=== PATIENT | male | born 2005 | race Hispanic/Latino ===

== ENCOUNTER 2023-07-04 13:21 | Emergency (ER) | payer OTHER ==
[2023-07-04] MEDS ORDERED: IBUPROFEN 400 MG TAB ONE (15:40)
[2023-07-04] MEDS ORDERED: predniSONE 20 MG TAB ONE (15:40)
[2023-07-04] MEDS ORDERED: DIAZEPAM 5 MG TABLET ONE (15:40)
--- NOTE | 2023-07-04 16:48 | ER ---
Nurse's Notes [facility] Name: Sylvester Mcneill Age: 18 yrs Sex: Male : 2005 Arrival Date: 07/04/2023 Time: 13:21 Bed 9 Private MD: Diagnosis: Generalized anxiety disorder;Pleurisy Presentation: 07/04 14:20 Chief complaint: Patient states: Had a panic attack earlier today. Has right side chest nj1 pain, going on for a week, concerned it could be pneumonia, also had cough, denies fever. Coronavirus screen: Vaccine status: Patient reports being unvaccinated. Ebola Screen: Patient denies travel to an Ebola-affected area in the 21 days before illness onset. Initial Sepsis Screen: Does the patient meet any 2 criteria? No. Patient's initial sepsis screen is negative. Does the patient have a suspected source of infection? No. Patient's initial sepsis screen is negative. Risk Assessment: Do you want to hurt yourself or someone else? Patient reports no desire to harm self or others. Onset of symptoms was June 2023. 14:20 Method Of Arrival: Ambulatory [facility] 14:20 Acuity: ZULMA 3 nj1 Historical: - Allergies: 14:23 No Known Allergies; nj1 - PMHx: 14:23 Depressive disorder; Anxiety; nj1 - Immunization history:: Client reports having NOT received the Covid vaccine. - Social history:: Smoking status: Patient reports the use of cigarette tobacco products, denies chronic smoking, but will smoke occasionally. Screenin:[facility] ED Fall Risk Assessment (Adult) History of falling in the last 3 months, cm10 including since admission No falls in past 3 months (0 pts) Confusion or Disorientation No (0 pts) Intoxicated or Sedated No (0 pts) Impaired Gait No (0 pts) Mobility Assist Device Used No (0 pt) Altered Elimination No (0 pt) Score/Fall Risk Level 0 - 2 = Low Risk Oriented to surroundings, Maintained a safe environment, Hourly rounding (assess needs \T\ fall precautionary measures) done. Abuse screen: Denies threats or abuse. Denies injuries from another. Nutritional screening: No deficits noted. Tuberculosis screening: No symptoms or risk factors identified. Assessment: 15:24 General: Appears in no apparent distress. comfortable, Behavior is calm, cooperative. cm10 Pain: Complains of pain in chest Pain does not radiate. Quality of pain is described as burning, Pain began 1 week ago. Neuro: No deficits noted. Level of Consciousness is awake, alert, Oriented to person, place, time, situation. Cardiovascular: No deficits noted. Heart tones present. Respiratory: No deficits noted. Airway is patent Respiratory effort is even, unlabored, Respiratory pattern is regular, symmetrical. 17:12 Reassessment: DC HOME AMBULATORY WITH FAMILY. bp Vital Signs: 14:20 BP 136 / 86; Pulse 57; Resp 17; Temp 98.2(O); Pulse Ox 100% ; Weight 61.23 kg; Height 5 nj1 ft. 7 in. ; Pain 3/10; 14:20 Body Mass Index 21.14 (61.23 kg, 170.18 cm) nj1 14:20 Pain Scale: Adult md1 ED Course: 13:25 Patient arrived in ED. mg5 13:33 Delfin Muller MD is Attending Physician. kdr 14:23 Triage completed. nj1 14:24 Arm band placed on right wrist. nj1 15:25 Patient has correct armband on for positive identification. Bed in low position. Call cm10 light in reach. Provided Education on: N/A. Cardiac monitoring not applicable on this patient. 15:25 No provider procedures requiring assistance completed. Patient did not have IV access cm10 during this emergency room visit. Patient maintains SpO2 saturation greater than 95% on room air. 15:28 Lauren Godoy, RN is Primary Nurse. cm10 Administered Medications: 15:33 Drug: Diazepam PO 5 mg Route: PO; cm10 16:36 Follow up: Response: No adverse reaction cm10 15:33 Drug: Ibuprofen PO 800 mg Route: PO; cm10 16:36 Follow up: Response: No adverse reaction cm10 15:33 Drug: predniSONE PO 20 mg Route: PO; cm10 16:36 Follow up: Response: No adverse reaction cm10 Medication: 15:25 VIS not applicable for this client. cm10 Outcome: 16:47 Discharge ordered by . kdr 17:12 Discharged to home ambulatory. bp 17:12 Condition: stable 17:12 Discharge instructions given to patient, Instructed on discharge instructions, follow up and referral plans. medication usage, Demonstrated understanding of instructions, follow-up care, medications, Prescriptions given X 1. 17:13 Patient left the ED. bp Signatures: Delfin Muller MD MD kdr Jonnie Gaines RN RN bp Vangie Gu RN RN nj1 Lauren Godoy RN RN cm10 Sultana Whitfield 5
--- NOTE | 2023-07-04 16:48 | EDPHYS ---
Physician Documentation [facility] Name: Sylvester Mcneill Age: 18 yrs Sex: Male : 2005 Arrival Date: 07/04/2023 Time: 13:21 Bed 9 Private MD: ED Physician Delfin Muller HPI: 07/04 19:47 This 18 yrs old Male presents to ER via Ambulatory with complaints of Anxiety - Panic kdr Attack, Chest Pain, Body Pain. 19:47 Patient states that he had a panic attack earlier today at work. He also was kdr complaining of chest pain mostly right-sided for about the past week. He is concerned that it could be pneumonia. Patient denies any cough or fever. The pain is worse when he takes of breath or when he exhales. He is not breathing he has no pain. I discussed with the patient the probability that this was likely pleurisy. Patient otherwise seems somewhat anxious but but was under control while in the ED. He was nontoxic-appearing.. Onset: The symptoms/episode began/occurred gradually, 1 week(s) ago. Severity of symptoms: At their worst the symptoms were mild moderate just prior to arrival, in the emergency department the symptoms have improved markedly. The patient has experienced similar episodes in the past, a few times. The patient has not recently seen a physician. Historical: - Allergies: 14:23 No Known Allergies; nj1 - PMHx: 14:23 Depressive disorder; Anxiety; nj1 - Immunization history:: Client reports having NOT received the Covid vaccine. - Social history:: Smoking status: Patient reports the use of cigarette tobacco products, denies chronic smoking, but will smoke occasionally. ROS: 19:47 Constitutional: Negative for fever, chills, and weight loss, Eyes: Negative for injury, kdr pain, redness, and discharge, ENT: Negative for injury, pain, and discharge, Neck: Negative for injury, pain, and swelling, Respiratory: Negative for shortness of breath, cough, wheezing, and pleuritic chest pain, Abdomen/GI: Negative for abdominal pain, nausea, vomiting, diarrhea, and constipation, Back: Negative for injury and pain, : Negative for injury, bleeding, discharge, and swelling, MS/Extremity: Negative for injury and deformity, Skin: Negative for injury, rash, and discoloration, Neuro: Negative for headache, weakness, numbness, tingling, and seizure activity. Allergy/Immunology: Negative for hives, rash, and allergies, Endocrine: Negative for neck swelling, polydipsia, polyuria, polyphagia, and marked weight changes, Hematologic/Lymphatic: Negative for swollen nodes, abnormal bleeding, and unusual bruising. 19:47 Cardiovascular: Positive for chest pain, with cough, with movement, of the right supraclavicular area, anterior aspect of right upper chest and right lateral anterior chest. 19:47 Psych: Positive for anxiety. Exam: 19:49 Constitutional: This is a well developed, well nourished patient who is awake, alert, kdr and in no acute distress. Head/Face: Normocephalic, atraumatic. Eyes: Pupils equal round and reactive to light, extra-ocular motions intact. Lids and lashes normal. Conjunctiva and sclera are non-icteric and not injected. Cornea within normal limits. Periorbital areas with no swelling, redness, or edema. Neck: Trachea midline, no thyromegaly or masses palpated, and no cervical lymphadenopathy. Supple, full range of motion without nuchal rigidity, or vertebral point tenderness. No Meningismus. Chest/axilla: Normal chest wall appearance and motion. Nontender with no deformity. No lesions are appreciated. Cardiovascular: Regular rate and rhythm with a normal S1 and S2. No gallops, murmurs, or rubs. Normal PMI, no JVD. No pulse deficits. Respiratory: Lungs have equal breath sounds bilaterally, clear to auscultation and percussion. No rales, rhonchi or wheezes noted. No increased work of breathing, no retractions or nasal flaring. Abdomen/GI: Soft, non-tender, with normal bowel sounds. No distension or tympany. No guarding or rebound. No evidence of tenderness throughout. Back: No spinal tenderness. No costovertebral tenderness. Full range of motion. Skin: Warm, dry with normal turgor. Normal color with no rashes, no lesions, and no evidence of cellulitis. MS/ Extremity: Pulses equal, no cyanosis. Neurovascular intact. Full, normal range of motion. Neuro: Awake and alert, GCS 15, oriented to person, place, time, and situation. Cranial nerves II-XII grossly intact. Motor strength 5/5 in all extremities. Sensory grossly intact. Cerebellar exam normal. Normal gait. 19:49 Psych: Behavior/mood is pleasant, cooperative, anxious, Affect is animated, Oriented to person, place, time, Patient has no thoughts/intents to harm self or others. Judgement / Insight is normal. Delusions/hallucinations are not present. Vital Signs: 14:20 BP 136 / 86; Pulse 57; Resp 17; Temp 98.2(O); Pulse Ox 100% ; Weight 61.23 kg; Height 5 nj1 ft. 7 in. ; Pain 3/10; 14:20 Body Mass Index 21.14 (61.23 kg, 170.18 cm) [facility] 14:20 Pain Scale: Adult nj1 MDM: 16:47 Patient medically screened. kdr 19:51 Data reviewed: vital signs, nurses notes, lab test result(s), radiologic studies. kdr Administered Medications: 15:33 Drug: Diazepam PO 5 mg Route: PO; cm10 16:36 Follow up: Response: No adverse reaction cm10 15:33 Drug: Ibuprofen PO 800 mg Route: PO; cm10 16:36 Follow up: Response: No adverse reaction cm10 15:33 Drug: predniSONE PO 20 mg Route: PO; cm10 16:36 Follow up: Response: No adverse reaction cm10 Disposition Summary: 07/04/23 16:47 Discharge Ordered Location: Home kdr Problem: an acute exacerbation kdr Symptoms: have improved kdr Condition: Stable kdr Diagnosis - Generalized anxiety disorder kdr - Pleurisy kdr Followup: kdr - With: Private Physician - When: 2 - 3 days - Reason: If symptoms return, Further diagnostic work-up, Recheck today's complaints, Continuance of care, Re-evaluation by your physician Discharge Instructions: - Discharge Summary Sheet kdr - Panic Attack, [id number] kdr - Pleurisy, [id number] kdr - Generalized Anxiety Disorder, Adult kdr Forms: - Medication Reconciliation Form kdr - Thank You Letter kdr - Patient Portal Instructions kdr Prescriptions: - Ibuprofen 600 mg Oral Tablet - take 1 tablet by ORAL route every 6 hours As needed take with food; 30 tablet; kdr Refills: 0, Product Selection Permitted Signatures: Delfin Muller MD MD kdr Vangie Gu RN RN nj1 aLuren Godoy RN RN cm10
[2023-07-04 17:28] VITALS: BP 136/86; TEMP 98.2; O2SAT 100
== END 2023-07-04 17:13 | disposition home or self-care (01) ==
LOC: ER 13:21
DX: F41.1 Generalized anxiety disorder (principal); R09.1 Pleurisy; F41.0 Panic disorder [episodic paroxysmal anxiety]; R07.9 Chest pain, unspecified; R05.9 Cough, unspecified; Z72.0 Tobacco use
CPT/HCPCS: J7512

== ENCOUNTER 2023-10-06 10:19 | Emergency (ER) | payer OTHER ==
--- OUTSIDE RECORDS SUMMARY | 2023-10-06 10:22 | XMS REPORT | Continuity of Care Document ---
:2005 Author Organization [facility] t Address [address] [place] [address] [place] [id number] Care Team Providers Name Role Phone DR ELIJAH OJEDA Attending Clinician Unavailable DR ELIJAH OJEDA Admitting Clinician Unavailable Payers Payer Name Policy Type Policy Number Effective Date Expiration Date S marshall [id number] 1959 00:00:00 Problems This patient has no known problems. Allergies, Adverse Reactions, Alerts This patient has no known allergies or adverse reactions. Medications This patient has no known medications. Procedures This patient has no known procedures. Encounters Start End Encounter Admission Attending Care Care Encounter Source Date/Time Date/Time Type Type Clinicians Facility Department ID 2022-03-30 [facility] [id number] Common 13:52:02 0504 [facility] 2022-03-29 [facility] Common 11:10:01 0503 [facility] 2022-03-28 Outpatient [facility] [id number] Common 08:33:01 0502 [facility] 2021-12-22 Outpatient [facility] [id number] Common 13:22:04 0702 [facility] 2021-12-22 Outpatient [facility] [id number] Common 13:21:07 0630 [facility] 2021-12-22 Outpatient [facility] [id number] Common 13:12:28 0609 [facility] 2021-12-22 Outpatient [facility] [id number] Common 13:08:01 05 [facility] 2021-12-22 [facility] Common 12:50:57 [id number] [facility] 2021-12-22 Outpatient [facility] Common 12:49:03 [id number] [facility] 2021-12-22 [facility] Common 12:47:24 [id number] [facility] 2021-12-22 Outpatient [facility] Common 12:46:39 [id number] [facility] 2021-12-22 [facility] Common 12:46:15 0330 [facility] 2022-03-28 2022-03-28 Outpatient 3 [place] [id number] [facility] 12:36:00 23:59:00 ELIJAH adkins (LUF/LI V/SA) Results Test Description Test Time Test Comments Results Result [facility] e Comments XR CHEST 2 PA 2022-03-28 [facility] LATERAL 13:16:14 [facility] (F/SNEHA/SA)Name: GRICEL HUTCHINSONQUE : 2005 Sex: M Proce dure: XR CHEST 2 PA LATERALOrder Date: 03/28/2022 12:38 PMOrdering Provider: LEIDY CANTRELLlinical Indication: [id number]: Chest painComparison: NoneFindings:Cardiac size is normal.Pulmonary vasculature is normal.Mediastinal contour is normal.Aortic contour is normal.There are no infiltrates or effusions.There is no mass or pneumothorax.There is no evidence of active tuberculosis.There is no skeletal abnormality.Impression : Negative PA and lateral views of the chest.This final report was electronically signed by Dr Eric Mtz MD 03/28/2022 1:10PMDictated By: ERIC MTZDate: 03/28/2022 13:10
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
[2023-10-06] MEDS ORDERED: IBUPROFEN 200 MG TAB PO ONE (11:03)
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
[2023-10-06 11:59] VITALS: BP 128/85; TEMP 98.5; O2SAT 100
== END 2023-10-06 11:35 | disposition home or self-care (01) ==
LOC: ER 10:19
DX: S60.511A Abrasion of right hand, initial encounter (principal); S80.01XA Contusion of right knee, initial encounter; S09.90XA Unspecified injury of head, initial encounter; V47.5XXA Car driver injured in collision with fixed or stationary object in traffic accident, initial encounter
CPT/HCPCS: 70450; 99283